=== PATIENT | male | born 2000 | race Caucasian/White ===

== ENCOUNTER 2021-03-26 09:49 | Emergency (ER) | payer OTHER, SELFPAY ==
[2021-03-26 10:06] VITALS: BP 164/98; PULSE 66; RESP 17; TEMP 36.7; O2SAT 98; BMI 29.8
--- NOTE | 2021-03-26 10:14 | XRR_ITS ---
PROCEDURE INFORMATION: Exam: XR Left Hand Exam date and time: 03/26/2021 10:14 AM Age: 20 years old Clinical indication: Injury or trauma; Other: Machinary accident; Blunt trauma (contusions or hematomas); Left; Patient HX: Trauma to L hand TECHNIQUE: Imaging protocol: XR Left hand. Views: 3 or more views. COMPARISON: No relevant prior studies available. FINDINGS: Bones/joints: No fracture or dislocation identified. Soft tissues: There is irregularity and swelling of the soft tissues about the thenar region, consistent with laceration and history of trauma. No radiopaque foreign body identified. XR/XR hand LT min 3V* [id number] IMPRESSION: 1. No acute osseous injury. 2. No radiopaque foreign body.
--- NOTE | 2021-03-26 10:22 | W.ED.EXTPRO ---
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 He is unsure of his last tetanus he can still move his thumb and index finger. He has normal sensation. He denies any other injury. MD Complaint: extremity pain Onset (ago): minute(s) Pain Consistency: constant Location: left and upper extremity Quality: sharp Relieving factors: rest Exacerbating factors: range of motion Associated symptoms: Deny arthralgias, chest pain, fever(s), myalgias, rash or short of breath Review of Systems Const: Denies: fever(s) Card: Denies: chest pain Resp: Denies: dyspnea, productive cough or non-productive cough Skin/Breast: Denies: rash PFS ED PFSH: Medical History No pertinent past medical history Surgical History No pertinent past surgical history Physical Exam Const: COMMON NORMALS: no acute distress GENERAL APPEARANCE: cooperative and comfortable ORIENTATION/CONSCIOUSNESS: Yes awake, Yes oriented to person, Yes oriented to place and Yes oriented to time HENMT: COMMON NORMALS: normocephalic, atraumatic and hearing grossly normal bilaterally HEAD & SCALP: normocephalic and atraumatic Neck/C-Spine: COMMON NORMALS: no JVD Resp: COMMON NORMALS: normal respiratory effort, No retractions, No use of accessory muscles and clear to auscultation bilaterally AUSCULTATION: clear to auscultation bilaterally Cardio: COMMON NORMALS: no JVD, regular rate, regular rhythm and No murmurs present (Cardio) RATE: regular rate RHYTHM: regular rhythm Extremity: OTHER: Large gaping laceration extending from the interdigital space webbing on the left hand between the first and second digits across the dorsum of the hand to the base of the first metacarpal in a semilunar shape. There are some small amount of oozing no active bleeding no arterial bleeding. Patient has full range of motion normal sensation. Wound is estimated to be 6 to 7 inches (15 to 17 cm) Neuro: SENSORIUM/ORIENTATION: Yes oriented to person, Yes oriented to place and Yes oriented to time Skin: COMMON NORMALS: no rashes or lesions noted GENERAL SKIN EXAM: no rashes or lesions noted Procedures Laceration Laceration 1: Site: hand Side (If applicable): left Size (cm): 17 Description: stellate Depth: simple, single layer Local Anesthetic: other anesthetic (General anesthesia) Pre-repair: wound explored, irrigated extensively and deep structures intact Skin layer closed with: nylon Size (cm): 3-0 (Running locking suture) and 4-0 (2 interrupted sutures used to achieve hemostasis) Procedural Sedation Indication: laceration repair Preparation: blown film extrusion operator applied, pulse oximeter, supplemental O2 applied, suction/airway equipment at bedside and IV secured Fentanyl: IV Fentanyl dose (mcg): 100 Midazolam: IV Midazolam dose (mg): 5 Patient Tolerated Procedure: well Complications: none Course Vital Signs: Vital signs: Vital Signs Temperature 98.0 F 03/26/21 10:06 Pulse Rate 65 03/26/21 14:35 Respiratory Rate 16 03/26/21 14:35 Blood Pressure 139/82 03/26/21 14:35 Pulse Oximetry 98 03/26/21 14:35 MDM - Extremity (Nontraumatic) Medical Decision Making Large laceration initially evaluated at the bedside. Deferred further evaluation until adequate anesthesia. I do not believe will be able to get it adequately anesthetized with local anesthesia so patient will undergo conscious sedation for washout and debridement if necessary as well as laceration repair. Conscious sedation done for laceration repair patient tolerated well was able to aggressively irrigate the wound and explore no tendon damage was noted patient was able to extend and circumduct the thumb prior to the procedure. He has normal sensation to both left thumb and index finger which was still present after the procedure as well. Patient was given a gram of Ancef in the ER is discharged home on Augmentin given pain medications wound care instructions and advised to elevate the left hand not to use left hand until cleared. Sutures should come out in 10 to 14 days. We will have Ortho see the patient for reevaluation to make sure that they do not feel he needs to be referred to hand surgery. Lab Data I reviewed the patient's lab results. : 03/26/21 10:19 03/26/21 12:06 Radiology Impressions Hand X-Ray 03/26/21 10:14 IMPRESSION: 1. No acute osseous injury. 2. No radiopaque foreign body. Laboratory Results WBC 8.5 10^3/uL (4.5-13.0) 03/26/21 10:19 RBC 6.02 10^6/uL (4.1-5.3) H 03/26/21 10:19 Hgb 17.1 g/dL (11.7-16.6) H 03/26/21 10:19 Hct 50.7 % (42.0-52.0) 03/26/21 10:19 MCV 84.2 fl (80-94) 03/26/21 10:19 MCH 28.4 pg (28.0-34.0) 03/26/21 10:19 MCHC 33.7 g/dL (30.0-36.0) 03/26/21 10:19 RDW 12.3 % (12.1-15.1) 03/26/21 10:19 Plt Count 282 10^3/cmm (130-400) 03/26/21 10:19 MPV 9.9 fL (7.4-10.4) 03/26/21 10:19 Neut % (Auto) 51.0 % 03/26/21 10:19 Lymph % (Auto) 36.1 % 03/26/21 10:19 [place] % (Auto) 9.3 % 03/26/21 10:19 Eos % (Auto) 2.5 % 03/26/21 10:19 Baso % (Auto) 0.7 % 03/26/21 10:19 Neut # (Auto) 4.37 10^3/uL (1.8-8.0) 03/26/21 10:19 Lymph # (Auto) 3.1 10^3/uL (1.5-6.5) 03/26/21 10:19 [place] # (Auto) 0.8 10^3/uL (0.2-0.9) 03/26/21 10:19 Eos # (Auto) 0.2 10^3/uL (0.0-0.8) 03/26/21 10:19 Baso # (Auto) 0.1 10^3/uL (0.0-0.1) 03/26/21 10:19 Nucleated RBC % (auto) 0 % 03/26/21 10:19 Nucleated RBCs # 0.0 /100WBC 03/26/21 10:19 Sodium 138 mmol/L (136-145) 03/26/21 12:06 Potassium 4.1 mmol/L (3.5-5.1) 03/26/21 12:06 Chloride 104 mmol/L (98-107) 03/26/21 12:06 Carbon Dioxide 22 mmol/L (22-29) 03/26/21 12:06 Anion Gap 16.1 (5-19) 03/26/21 12:06 BUN 12 mg/dL (6-20) 03/26/21 12:06 Creatinine 0.9 mg/dL (0.7-1.2) 03/26/21 12:06 GFR Calculation 108.7 mL/min (90-130) 03/26/21 12:06 Glucose 95 mg/dL (65-115) 03/26/21 12:06 Calculated Osmolality 286 mOsm/kg (285-295) 03/26/21 12:06 Calcium 8.8 mg/dL (8.5-10.5) 03/26/21 12:06 Total Bilirubin 0.6 mg/dL (0.15-1.2) 03/26/21 12:06 AST 21 U/L (0-40) 03/26/21 12:06 ALT 16 U/L (0-41) 03/26/21 12:06 Alkaline Phosphatase 70 IU/L (40-130) 03/26/21 12:06 Total Protein 7.2 g/dL (6.6-8.7) 03/26/21 12:06 Albumin 4.8 g/dL (3.5-5.2) 03/26/21 12:06 Globulin 2.4 g/dL (1.3-4.6) 03/26/21 12:06 Discharge Plan Discharge Patient Disposition: Home Clinical Impression: Laceration of hand, Degloving injury of hand Condition: Stable Prescriptions: New hydrocodone-acetaminophen 5-325 mg tablet 1 tab PO Q6H PRN (Reason: pain) Qty: 15 0RF Augmentin 875-125 mg tablet 1 tab PO BID Qty: 14 0RF bacitracin 500 unit/gram ointment 1 applic topical BID Qty: 28 0RF Discharge Orders: Discharge ED (Routine); Ordered 03/26/21 Ordered By: Givoanni Holliday Discharge Diet: Usual diet Discharge Activity: Limit activity as instructed Patient Instructions: Opioid Safety Activity Restrictions/Additional Instructions: No use of the left hand until cleared. You should not drive if you are taking any pain medications. Apply topical antibiotic ointment to wound twice daily Coding Level of Care Code ED Bullet Charging Machine Operator for Felicia Fwd Exam Detailed
[2021-03-26 10:26] LABS: Basophils # 0.1 10^3/uL (0.0-0.1); Basophils % 0.7 %; Eosinophils # 0.2 10^3/uL (0.0-0.8); Eosinophils % 2.5 %; Hematocrit 50.7 % (42.0-52.0); Hemoglobin 17.1 g/dL (11.7-16.6); Lymphocytes # 3.1 10^3/uL (1.5-6.5); Lymphocytes % 36.1 %; Mean Corpuscular HGB Conc 33.7 g/dL (30.0-36.0); Mean Corpuscular Hemoglobin 28.4 pg (28.0-34.0); Mean Corpuscular Volume 84.2 fl (80-94); Mean Platelet Volume 9.9 fL (7.4-10.4); Monocytes # 0.8 10^3/uL (0.2-0.9); Monocytes % 9.3 %; Neutrophils # 4.37 10^3/uL (1.8-8.0); Nucleated Red Blood Cells % 0 %; Platelet Count 282 10^3/cmm (130-400); Red Blood Count 6.02 10^6/uL (4.1-5.3); Red Cell Distribution Width 12.3 % (12.1-15.1); White Blood Count 8.5 10^3/uL (4.5-13.0)
[2021-03-26 10:28] VITALS: RESP 16; O2SAT 98
[2021-03-26] MEDS: morphine 4 mg/mL SDV 1 mL 6 MG IVP (10:28)
[2021-03-26] MEDS: ondansetron 2 mg/ML SDV 2 mL 4 MG IVP (10:29)
[2021-03-26] MEDS: ceFAZolin 1,000 mg SDV 1000 MG IVP (10:36)
[2021-03-26] MEDS: tetanus-dipt-pertussis 0.5 mL SDV IM (10:39)
[2021-03-26] MEDS: midazolam 1 mg/mL INJ 2 mL 5 MG IVP (11:12)
--- NOTE | 2021-03-26 12:16 | PC.NURSE ---
Cardiac monitoring initiated prior to start of conscious sedation. Pt continued on continuous cardiac, BP, and SpO2 monitoring.
[2021-03-26 12:17] VITALS: BP 142/103; PULSE 73; RESP 12; O2SAT 98
[2021-03-26 12:44] LABS: Alanine Aminotransferase 16 U/L (0-41); Albumin Level 4.8 g/dL (3.5-5.2); Alkaline Phosphatase 70 IU/L (40-130); Anion Gap 16.1 (5-19); Aspartate Amino Transferase 21 U/L (0-40); Blood Urea Nitrogen 12 mg/dL (6-20); Calcium 8.8 mg/dL (8.5-10.5); Carbon Dioxide 22 mmol/L (22-29); Chloride 104 mmol/L (98-107); Globulin 2.4 g/dL (1.3-4.6); Glomerular Filtration Rate 108.7 mL/min (90-130); Glucose 95 mg/dL (65-115); Osmolality Calculated 286 mOsm/kg (285-295); Potassium 4.1 mmol/L (3.5-5.1); Sodium 138 mmol/L (136-145); Total Bilirubin 0.6 mg/dL (0.15-1.2); Total Protein 7.2 g/dL (6.6-8.7)
--- NOTE | 2021-03-26 13:42 | PC.NURSE ---
Conscious sedation: Dr Holliday ordered conscious sedation for pt for repair of laceration to left hand. initial vitals: BP 152/99 Pulse 69 R: 13 SpO2 100% on 2L via NC. Respiratory therapy present. 3 Mg verced @ 1112 50 mg fentanyl @ 1124 additional 50 fentanyl @ 1130 1 mg versed @ 1137 Dr. Holliday finished repair of laceration at 1155 BP 147/126 P. 80 R12 SpO2 98% 2 L.
[2021-03-26] MEDS: fentaNYL 50 mcg/mL INJ 2mL 100 MCG IVP (13:54)
[2021-03-26] MEDS: midazolam 1 mg/mL INJ 2 mL 2 MG IVP (13:55)
--- NOTE | 2021-03-26 14:01 | PC.NURSE ---
Vitals for pt have been printed and scanned into chart.
[2021-03-26] MEDS: bacitracin ointment Pkt 1 EACH TOPICAL (14:02)
[2021-03-26 14:35] VITALS: BP 139/82; PULSE 65; RESP 16; O2SAT 98
--- NOTE | 2021-03-28 10:28 | DCPLANNER ---
Addendum entered by Lashonda Klein 03/28/21 11:47: Patients mother called and wanted patient to be referred to Dr. Adame in [place]. credit manager faxed patients information to the clinic, who will call patient with appointment information. Original Note: credit manager had message to schedule a follow up appointment for patient with ortho. credit manager called the ortho clinic, spoke with Juliet, gave clinic patients information. credit manager was told that patients information would be printed and reviewed. Clinic will call patient with appointment information.
== END 2021-03-26 14:14 | disposition home or self-care (01) ==
PROVIDERS: Emergency Provider Family Medicine
DX: S61.412A Laceration without foreign body of left hand, initial encounter (principal); S61.402A Unspecified open wound of left hand, initial encounter; W31.9XXA Contact with unspecified machinery, initial encounter; Y99.0 Civilian activity done for income or pay; Z23 Encounter for immunization
CPT/HCPCS: 12005; 73130; 80053; 85025; 90471; 90715; 96374; 96375; 99284; J0690; J2250; J2270; J2405; J3010